=== PATIENT | male | born 1985 | race Two or more races ===

== ENCOUNTER 2019-08-05 10:02 | Emergency (ER) | payer SELFPAY ==
[~2019-08-05] VITALS: Ht 175.3 cm; Wt 83.9 kg
[2019-08-05] MEDS ORDERED: cefTRIAXone 1GM/50ML D5W 50 ML IV ONE (10:30)
[2019-08-05] MEDS ORDERED: CLINDAMYCIN 900MG IV 50 ML IV ONE (10:30)
[2019-08-05] MEDS ORDERED: methylPREDNISolone SOD SUCC 125 MG/2 ML VL IV ONE ×2 (10:30)
[2019-08-05] MEDS ORDERED: IOHEXOL 300 MG/ML 100ML BOTTLE IJ ONE (10:33)
[2019-08-05] MEDS ORDERED: SODIUM CHLORIDE 0.9% 1,000 ML IV ONE ×2 (11:01)
[2019-08-05 11:06] LABS: Basophils # (auto) 0 uL; Basophils % (auto) 0.3 % (0.0-2.0); Eosinophils # (auto) 0 uL; Eosinophils % (auto) 0.1 % (0.0-7.0); Hematocrit 48.8 % (41.0-53.0); Lymphocytes # (auto) 1.8 uL; Lymphocytes % (auto) 10.1 % (10.0-50.0); Mean Corpuscular Hemoglobin 31.8 pg (28.0-32.0); Mean Corpuscular Hgb Conc. 34.8 g/dL (32.0-36.0); Mean Corpuscular Volume 91.2 fL (80.0-100.0); Monocytes # (auto) 1.6 uL; Monocytes % (auto) 9.1 % (0.0-12.0); Neutrophils # (auto) 14.3 uL; Neutrophils % (auto) 80.4 % (37.0-80.0); Nucleated Red Blood Cells % 0.1 %; Platelet Count (auto) 217 10^3/uL (140-450); Red Blood Cells 5.35 10^6/uL (4.5-5.90); Red Cell Distribution Width 15.4 % (11.8-14.3); White Blood Cell 17.8 10^3/uL (4.4-10.8)
[2019-08-05 11:28] LABS: Albumin 5.1 g/dL (3.4-5.0); Calcium 9.6 mg/dL (8.5-10.1); Potassium 3.2 mmol/L (3.5-5.1)
[2019-08-05 11:32] LABS: BUN/Creatinine Ratio 8.9; Bilirubin, Total 3.3 mg/dL (0.2-1.0); Total Protein 8.8 g/dL (6.4-8.2)
[2019-08-05 12:50] LABS: Urine Bacteria NONE SEEN /hpf (None Seen); Urine Blood Negative /uL (Negative); Urine Mucus FEW (None Seen); Urine Specific Gravity 1.021 (1.001-1.035); Urine WBC <1 /hpf (0 - 3)
[2019-08-05 15:00] VITALS: BP 143/81
[2019-08-05] MEDS ORDERED: HYDROcodone-ACET 10/325MG TAB PO ONE (15:15)
== END 2019-08-05 16:03 | disposition home or self-care (01) ==
LOC: ER 10:02
DX: L03.211 Cellulitis of face (principal); K02.9 Dental caries, unspecified; F12.10 Cannabis abuse, uncomplicated
CPT/HCPCS: 36415; 70487; 80053; 81001; 83605; 85025; 87040; 96365; 96366; 96367; 96375; 99284; J0696; J2930; J3490; J7030; Q9967